=== PATIENT | male | born 2000 | race Caucasian/White ===

== ENCOUNTER 2023-10-12 | Emergency (ER) | payer OTHER ==
[2023-10-12 01:29] VITALS: BP 135/94; PULSE 66; RESP 16; TEMP 98.4; BMI 27.2
== END 2023-10-12 00:16 | disposition home or self-care (01) ==
LOC: FER
DX: S80.02XA Contusion of left knee, initial encounter (principal); S50.312A Abrasion of left elbow, initial encounter; W01.0XXA Fall on same level from slipping, tripping and stumbling without subsequent striking against object, initial encounter; Y92.481 Parking lot as the place of occurrence of the external cause
CPT/HCPCS: 99282-25